=== PATIENT | male | born 1975 | race Caucasian/White ===

== ENCOUNTER 2016-12-29 22:17 | Emergency (ER) | payer OTHER ==
--- NOTE | 2016-12-29 22:36 | ERNOTE ---
Upper Extremity HPI - Narrative Date of Service: 12/29/16 - General Extremities Pain Location: 3rd finger: left, 5th finger: left Time Seen by Provider: 12/29/16 22:20 Source: patient, RN notes reviewed Exam Limitations: no limitations - Immun/Allergies/Home Medications Allergies/Adverse Reactions: Allergies Allergy/AdvReac Type Severity Reaction Status Date / Time aspirin Allergy throat Verified 12/29/16 22:32 swelling Penicillins Allergy Verified 12/29/16 22:32 Home Medications: HOME MEDICATIONS Cephalexin Monohydrate [Keflex] 1,000 mg PO BID #40 cap 12/30/16 [Last Taken Unknown] HYDROcodone/ACETAMINOPHEN [[place] 5-325 Tablet] 1 - 2 tab PO Q6H PRN #16 tab 10/09 [Last Taken Unknown] - History of Present Illness Narrative: Patient at work, got left hand smashed by a 600+ garbage can. Left 3rd finger is bleeding in distal phalanx, unable to move 5th finger yet, or 3rd and 4th fingers. Patient very tense, in a lot of pain. Occurred: just prior to arrival Location of Incident: work Severity: moderate Method of Injury: Reports: direct blow - crush injury Review of Systems - Review of Systems Constitutional: Absent: recent illness, fever, chills EYE: Present: no symptoms reported ENT: Absent: ear pain, sore throat Respiratory: Absent: shortness of breath, cough Cardiology: Absent: chest pain Gastrointestinal/Abdominal: Absent: nausea, vomiting, diarrhea, abdominal pain Genitourinary: Absent: frequency, pain, dysuria Musculoskeletal: Present: muscle pain - left 3-5 fingers, muscle stiffness - left 3-5 fingers. Absent: back pain, neck pain Skin: Present: other - small laceration left 3rd distal phalanx, abrasion on left 3rd finger pad Neurological: Absent: anxiety, depressed, headache Endocrine: Present: no symptoms reported Hematologic/Lymphatic: Present: no symptoms reported Psych: Present: no symptoms reported - Patient's Past Medical History Patient History - Medical: Alcohol Abuse Patient History - Cardiac/Respiratory: No pertinent hx Patient History - Cancer: No Hx of Cancer Patient History - Surgical Procedures: No surgical history Patient History - Other: None - Social History Living Situations: significant other Abuse History: No History of abuse Does anyone smoke in the home?: Yes Smoking Status: Heavy tobacco smoker Cigarettes Packs Per Day: 1.5 Have you smoked in the past 12 months: Yes Alcohol Use: heavy Physical Exam - Physical Exam General Appearance: Present: wd/wn, alert, moderate distress, thin Head Exam: Present: normal inspection, no evidence of injury Eye Exam: Normal inspection: bilateral, PERRL: bilateral, EOMI: bilateral Ears, Nose, Throat: Present: normal ENT inspection, normal pharynx Neck: Present: normal inspection, nontender, supple, full range of motion Respiratory: Present: no respiratory distress, normal breath sounds, no accessory muscle use, chest nontender Cardiovascular/Chest: Present: regular rate, rhythm, no murmur Gastrointestinal/Abdominal: Present: normal bowel sounds, nontender, nondistended, soft Back Exam: Present: normal inspection, normal range of motion Extremity Exam: Present: normal except - - left 3rd, 4th and 5th distal digits, other - left 3rd finger with distal phalanx abrasion and small 1 cm laceration with mild bleeding, very tender to palpation. Left 4th finger with distal phalanx tenderness to palpation, no laceration or abrasion Neurological Exam: Present: alert, oriented, normal mood/affect Skin Exam: Present: normal color, warm/dry, other - laceration and abrasion left 3rd distal phalanx ED Progress - Vital Signs Patient's Vital Signs:: I have reviewed the patient's vital signs. - X-Ray X-Ray #1 X-Ray: hand Interpretation: Interp. by me X-ray Comments: Comminuted tuft fracture left 3rd finger, fracture of tuft left 4th finger, no other fractures noted. Plan - Plan Plan: Rocephin 1 gram IM with lidocaine. Counseled patient that he needs to take his antibiotics as prescribed to keep infection away from his fingers. Discharged home with [place] 5/325 mg #6 to go. Departure Clinical Impression: Open fracture of finger of left hand Qualifiers: Encounter type: initial encounter Finger: middle finger Phalanx: distal Fracture alignment: nondisplaced Qualified Code(s): S62.663B - Nondisplaced fracture of distal phalanx of left middle finger, initial encounter for open fracture Closed fracture of phalanx of left ring finger Qualifiers: Encounter type: initial encounter Phalanx: distal Fracture alignment: nondisplaced Qualified Code(s): S62.665A - Nondisplaced fracture of distal phalanx of left ring finger, initial encounter for closed fracture - Departure Disposition: Home self-care Condition: Good Instructions: Crush Injury of the Fingers or Toes Referrals: Kerri Jones, PAC [[facility]] - (Call Sunday for an appointment as soon as possible) Prescriptions: Cephalexin Monohydrate [Keflex] 1,000 mg PO BID #40 cap HYDROcodone/ACETAMINOPHEN [[place] 5-325 Tablet] 1 - 2 tab PO Q6H PRN #16 tab PRN Reason: Pain
[2016-12-29] MEDS ORDERED: LIDOCAINE HCL 20 ML VIAL ONE (23:47)
[2016-12-30] MEDS ORDERED: HYDROcodone/ACETAMINOPHEN 1 EACH TABLET ONE (00:26)
[2016-12-30] MEDS ORDERED: DIPHTH,PERTUSS(ACELL),TET VAC 0.5 ML VIAL IM ONE ×2 (00:38→00:40)
[2016-12-30] MEDS ORDERED: HYDROcodone/ACETAMINOPHEN 1 EACH TABLET PO ONE (00:38)
[2016-12-30 01:01] VITALS: BP 145/89
== END 2016-12-30 00:59 | disposition home or self-care (01) ==
LOC: ER 22:17
PROC: 2W3KX1Z Immobilization of Left Finger using Splint (ICD-10-PCS; principal; 2016-12-29)
PROC: 2W3KX1Z Immobilization of Left Finger using Splint (ICD-10-PCS; 2016-12-29)
DX: S62.663B Nondisplaced fracture of distal phalanx of left middle finger, initial encounter for open fracture (principal); S62.665A Nondisplaced fracture of distal phalanx of left ring finger, initial encounter for closed fracture; F17.200 Nicotine dependence, unspecified, uncomplicated; Z23 Encounter for immunization; X58.XXXA Exposure to other specified factors, initial encounter; Y92.9 Unspecified place or not applicable; Y99.0 Civilian activity done for income or pay; S61.215A Laceration without foreign body of left ring finger without damage to nail, initial encounter

== ENCOUNTER 2017-05-15 06:47 | Emergency (ER) | payer BC ==
--- NOTE | 2017-05-15 07:13 | ERNOTE ---
Medical Problem HPI - General Chief Complaint: Flu Symptoms Time Seen by Provider: 05/15/17 07:05 Source: patient, family Exam Limitations: no limitations - Immun/Allergies/Home Medications Immunizations: IMMUNIZATION HX Immunizations Up to Date Yes History of Influenza Vaccine No Hx Pneumococcal Vaccination No Allergies/Adverse Reactions: Allergies aspirin Allergy (Verified 12/29/16 22:32) throat swelling bismuth subsalicylate [From Pepto-Bismol] Allergy (Verified 05/15/17 07:35) Penicillins Allergy (Verified 12/29/16 22:32) Home Medications: HOME MEDICATIONS Cephalexin Monohydrate [Keflex] 1,000 mg PO BID #40 cap 12/30/16 [Last Taken Unknown] HYDROcodone/ACETAMINOPHEN [[place] 5-325 Tablet] 1 - 2 tab PO Q6H PRN #16 tab 10/09 [Last Taken Unknown] Sulfamethoxazole/Trimethoprim [Bactrim Ds] 1 tab PO BID #20 tab 01/01/17 [Last Taken Unknown] - History of Present History Narrative: onset of fever, cough and body aches Sunday morning. Has taken tylenol with limited improvement. Timing: getting worse Severity: moderate Modifying Factors - (Improves): Present: medication - short term Review of Systems - Review of Systems Constitutional: Present: fever, chills, fatigue, malaise EYE: Present: no symptoms reported ENT: Present: nose congestion, nasal drainage - mild Respiratory: Present: shortness of breath, cough Cardiology: Present: palpitations - previously had palpitations once a week and now is most of the time. Gastrointestinal/Abdominal: Present: nausea, abdominal pain - burning, epigastric. Absent: vomiting Genitourinary: Present: no symptoms reported Musculoskeletal: Present: muscle pain Skin: Absent: rash Endocrine: Present: excessive sweating, flushing, intolerance to heat Hematologic/Lymphatic: Present: no symptoms reported Psych: Present: no symptoms reported, anxiety - Patient's Past Medical History Patient History - Medical: Anxiety, Depression Patient History - Cardiac/Respiratory: COPD Patient History - Cancer: No Hx of Cancer Patient History - Surgical Procedures: Orthopedic Patient History - Other: None - Social History Living Situations: home Abuse History: No History of abuse Psych History: Hx of Anxiety, Hx of Depression Smoking Status: Current every day smoker Have you smoked in the past 12 months: Yes Do you dip or chew tobacco: No Alcohol Use: heavy Drug Use: marijuana - Immunizations Immunizations Up to Date: Yes Hx Pneumococcal Vaccination: No History of Influenza Vaccine: No Physical Exam - Physical Exam General Appearance: Present: wd/wn, alert, no apparent distress Head Exam: Present: normal inspection, no evidence of injury Ears, Nose, Throat: Present: nasal congestion, normal pharynx Neck: Present: normal inspection, nontender Respiratory: Present: no respiratory distress, normal breath sounds, no accessory muscle use, lungs clear Cardiovascular/Chest: Present: regular rate, rhythm, no murmur, normal peripheral pulses Gastrointestinal/Abdominal: Present: nontender, nondistended, soft Back Exam: Present: normal inspection, normal range of motion, no vertebral tenderness Extremity Exam: Present: normal inspection, normal range of motion, no edema Neurological Exam: Present: alert, oriented, normal mood/affect, no motor/ sensory deficits Skin Exam: Present: normal color, warm/dry Lymphatic Exam: Present: no adenopathy ED Progress - Results and Orders Patient's Lab Results:: I have reviewed the patient's lab results. Results and Orders: Laboratory Tests 05/15/17 07:09 Influenza Type A Ag Negative Influenza Type B Ag Positive H - Vital Signs Patient's Vital Signs:: I have reviewed the patient's vital signs. Vital Signs: Vital Signs 05/15/17 06:54 Temperature 36.7 C Pulse Rate 88 Respiratory 18 Rate Blood Pressure 127/76 O2 Sat by Pulse 98 Oximetry - EKG EKG: NSR, other - occasional PAC EKG read: Interp. by me - Progress/Reassessment Chief Complaint: Flu Symptoms Progress:: Improved Progress Note-Subjective: 05/15/17 07:51 epigastric burning resolved by GI coctail 05/15/17 07:53 discussed his caffeine intake and recent increase. Encouraged him to reduce caffeine intake and if palpitations continue he should see a PCP for further evaluation. Pt expressed understanding Departure Clinical Impression: Influenza B, Palpitations - Departure Disposition: Home Follow Up Needed Condition: Good Instructions: Influenza, Adult, [id number] Additional Instructions: Reduce your caffeine intake slowly. If you continue to have the fluttering feeling see a primary care provider for further testing
[2017-05-15] MEDS ORDERED: MAG HYDROX/ALUMINUM HYD/SIMETH 30 ML UDC PO ONE (07:36)
[2017-05-15] MEDS ORDERED: LIDOCAINE HCL 20 ML UDC PO ONE (07:36)
[2017-05-15] MEDS ORDERED: SUCRALFATE 1 G/10 ML UDC PO ONE (07:36)
[2017-05-15 07:59] VITALS: BP 126/75
== END 2017-05-15 07:50 | disposition home or self-care (01) ==
LOC: ER 06:47
DX: J10.1 Influenza due to other identified influenza virus with other respiratory manifestations; F17.200 Nicotine dependence, unspecified, uncomplicated; R00.2 Palpitations